=== PATIENT | male | born 1990 | race Caucasian/White ===

== ENCOUNTER 2018-11-02 14:47 | Emergency (ER) | payer OTHER, SELFPAY ==
[2018-11-02 14:59] VITALS: BP 116/80; PULSE 84; RESP 20; TEMP 36.6; O2SAT 99; BMI 31.5
--- NOTE | 2018-11-02 15:27 | PC.NURSE ---
Pt picked up a printer,after that he had right middle back pain.
[2018-11-02] MEDS: diazePAM 5 MG TABLET PO (16:13)
--- NOTE | 2018-11-02 16:18 | ED.BACK ---
HPI - Back Pain/Injury <SUHA Ford - Last Filed: 11/02/18 22:15> General Chief Complaint: Back Pain/Injury Stated Complaint: thinks pulled something in his back Time Seen by Provider: 11/02/18 15:32 Source: patient Mode of arrival: ambulatory Limitations: no limitations History of Present Illness HPI Narrative: 28-year-old healthy male, presents emergency department today complaining of left thoracic back pain after moving a printer. He states when he lifted up the printer the drawer surgeon to come out and he twisted quickly to catch the drawer and felt a sudden pain in the left side of his thoracic back today. He states the pain is an aching 4/10 that is worse with movement and better with rest. Patient stated he took 1 Aleve today at noon. He denies any chest pain, shortness of breath, previous back injury, trauma, dysuria, numbness, tingling, saddle paresthesias, loss of bowel or bladder control, nausea, vomiting, or other concerning symptoms. MD Complaint: back pain Related Data Previous Rx's Medication Instructions Recorded methocarbamol 500 mg PO QID 3 Days #12 tab 11/02/18 Allergies Allergy/AdvReac Type Severity Reaction Status Date / Time codeine AdvReac Intermediate Dizziness Verified 11/02/18 15:04 Review of Systems <SUHA Ford - Last Filed: 11/02/18 22:15> Review of Systems Narrative: REVIEW OF SYSTEMS: GENERAL: Denies fever or chills. HENT: No head trauma. EYES: No double vision or vision loss. CARDIOVASCULAR: No chest pain or syncope. RESPIRATORY: No shortness of breath or cough. GASTROINTESTINAL: No nausea, vomiting, diarrhea, or constipation. GENITOURINARY: No flank pain or dysuria. MUSCULOSKELETAL: Complains of upper left pain, see HPI. INTEGUMENTARY: No rash, lesions, or pruritus. NEURO: No numbness, tingling. PSYCH: No behavior or mood changes. PFSH <SUHA Ford - Last Filed: 11/02/18 22:15> Medical History No significant medical problems (Acute) Social History Smoking Status: Current every day smoker Social History Smoking Status: Current every day smoker Exam <SUHA Ford - Last Filed: 11/02/18 22:15> Initial Vital Signs Initial Vital Signs: Vital Signs Temperature 97.9 F 11/02/18 14:59 Pulse Rate 84 11/02/18 14:59 Respiratory Rate 20 11/02/18 14:59 Blood Pressure 116/80 11/02/18 14:59 Pulse Oximetry 99 11/02/18 14:59 PHYSICAL EXAMINATION: GENERAL: Well groomed, alert, and cooperative. Answers questions promptly and appropriately. Vital signs noted. HENT: Normocephalic, atraumatic. EYES: Symmetrical, sclera white, no periorbital swelling. CARDIOVASCULAR: S1 and S2 sounds normal. Regular rate and rhythm, no murmurs, clicks, or bruits. No pedal edema. RESPIRATORY: Normal respiratory rate, trachea midline, airway patent. No stridor, nasal flaring or accessory muscle use. Lungs are clear in all bhagat. MUSCULOSKELETAL: Tenderness with palpation to left thoracic muscle around the and of the trapezius muscle, muscle spasm palpated. No tenderness to palpation of ribs. Full range of motion of upper extremities. Normal gait and coordination. Equal tone and mass bilaterally. No spinal tenderness or deformities. EXTREMITIES: CMS intact. No pedal edema. SKIN: Warm, dry, soft, appropriate color for ethnicity. No lesions, rashes, or wounds. NEURO: Alert and Oriented X 3. No sensory deficits. PSYCH: Appropriate affect and mood. <Mayte Nicole DO - Last Filed: 11/06/18 21:41> Initial Vital Signs Initial Vital Signs: Vital Signs Temperature 97.9 F 11/02/18 14:59 Pulse Rate 84 11/02/18 14:59 Respiratory Rate 20 11/02/18 14:59 Blood Pressure 116/80 11/02/18 14:59 Pulse Oximetry 99 11/02/18 14:59 Course <SUHA Ford - Last Filed: 11/02/18 22:15> Orders Ordered: Discontinued Medications Diazepam (Valium) 5 mg PO NOW ONE Stop: 11/02/18 16:10 Last Admin: 11/02/18 16:13 Dose: 5 mg Documented by: HUSSEIN Vital Signs Vital signs: Vital Signs - 8 hr 11/02/18 14:59 11/02/18 16:29 Temperature 97.9 F Pulse Rate 84 71 Respiratory Rate 20 Blood Pressure 116/80 103/68 Pulse Oximetry 99 99 <Mayte Nicole DO - Last Filed: 11/06/18 21:41> Orders Ordered: Discontinued Medications Diazepam (Valium) 5 mg PO NOW ONE Stop: 11/02/18 16:10 Last Admin: 11/02/18 16:13 Dose: 5 mg Documented by: KBROTEM Vital Signs Vital signs: Vital Signs - 8 hr 11/02/18 14:59 11/02/18 16:29 Temperature 97.9 F Pulse Rate 84 71 Respiratory Rate 20 Blood Pressure 116/80 103/68 Pulse Oximetry 99 99 MDM - Back Pain/Injury <SUHA Ford - Last Filed: 11/02/18 22:15> Medical Records Attestation: I reviewed the patient's medical records. Lab Data Attestation: I reviewed the patient's lab results. MDM Narrative Medical decision making narrative: Differential includes muscle spasm (consistent with exam and history), muscle strain or sprain, fracture (less likely due to lack of trauma and non tenderness to palpation of spine and ribs), pneumonia (less likely due to report of muscle injury, lack of systemic symptoms such as cough and shortness of breath.) Follow-up instructions given to patient. Discharge Plan Departure Patient Disposition: Home Clinical Impression: Strain of muscle at thorax level, Muscle spasm Discharge Date/Time: 11/02/18 16:30 Instructions: DI for Back Spasm Activity Restrictions/Additional Instructions: Thank you for entrusting me with your care today. As discussed, and appears that you have any full spasm under muscle strain in your back. I prescribed you a muscle relaxer, this can make you drowsy do not drive with this medication. You can take 800 mg of ibuprofen every 8 hours for the next 3 days to help decrease the inflammation. Perform gentle stretches to the area as often as possible. Please follow up with your primary care provider in the next week for further evaluation if symptoms persist. Return to the emergency department if you develop chest pain, shortness of breath, fevers, loss of bowel or bladder control, or numbness and tingling. Prescriptions: New methocarbamol 500 mg tablet 500 mg PO QID 3 Days Qty: 12 RF: 0
[2018-11-02 16:29] VITALS: BP 103/68; PULSE 71; O2SAT 99
== END 2018-11-02 16:30 | disposition home or self-care (01) ==
PROVIDERS: Emergency Provider Nurse Practitioner
DX: S39.012A Strain of muscle, fascia and tendon of lower back, initial encounter (principal); M62.830 Muscle spasm of back
CPT/HCPCS: 99282; 99283

== ENCOUNTER → 2020-05-13 15:20 | Outpatient (CLI) | payer OTHER, SELFPAY ==
--- NOTE | 2020-05-13 15:23 | DI.MRI.S_ITS ---
PROCEDURE: MR CERVICAL SPINE WO CON INDICATIONS: Paresthesia of skin TECHNIQUE: Noncontrast sagittal T1 spin echo and T2 fast spin echo, sagittal STIR, foraminal oblique sagittal T2 fast spin echo, and axial gradient echo or T2 fast spin echo through the cervical spine. COMPARISON: None. FINDINGS: Image quality: Excellent. Alignment and Curvature: There is normal bony alignment. Bone Marrow: Marrow demonstrates normal overall signal. Spinal Cord: Visualized spinal cord has normal size and signal. No cerebellar tonsillar herniation. Paraspinous Soft Tissues: No paravertebral masses. Prevertebral soft tissues are normal in thickness. C2-C3: Normal appearance. C3-C4: Normal appearance. C4-C5: Normal appearance. C5-C6: Normal appearance. C6-C7: Posterior disc-osteophyte complex minimally flattens the right paracentral cord. No neural foraminal stenosis. C7-T1: Normal appearance. IMPRESSION: No cord signal abnormality to suggest a demyelinating disorder. No significant degenerative changes. Dictated by: Charles Smith M.D. on 05/13/2020 at 16:10 Approved by: Charles Smith M.D. on 05/13/2020 at 16:11
== END ==
DX: R20.0 Anesthesia of skin (principal)
CPT/HCPCS: 72141